=== PATIENT | male | born 1950 | race Caucasian/White ===

== ENCOUNTER 2018-02-07 10:35 | Inpatient (IN) | payer OTHER ==
[2018-01-26 08:27] VITALS: BMI 31.0
--- NOTE | 2018-01-26 08:59 | PAT Medication Instructions ---
Service Date Jan 26, 2018. Current Home Medication List Aspirin (Aspirin Ec), 81 MG PO QPM Esomeprazole Magnesium (Nexium), 20 MG PO HS Fexofenadine-Pseudoephedrine (Emily-D 24 Hour Allergy), 1 TAB PO QPM Tamsulosin Hcl (Flomax), 0.8 MG PO HS [Amlodipine Valsartan], 1 TAB PO QPM Medication Instructions For Your Scheduled Surgery - Hold the following medications the night before surgery: [Amlodipine Valsartan], 1 TAB PO QPM - Take the following medications as scheduled the night before surgery: Aspirin (Aspirin Ec), 81 MG PO QPM Esomeprazole Magnesium (Nexium), 20 MG PO HS Fexofenadine-Pseudoephedrine (Emily-D 24 Hour Allergy), 1 TAB PO QPM Tamsulosin Hcl (Flomax), 0.8 MG PO HS NOTHING TO EAT OR DRINK AFTER MIDNIGHT If you have any questions please call us at [phone] or [phone] or [phone]
--- NOTE | 2018-01-26 10:04 | DIAGNOSTIC IMAGING REPORT ---
CHEST 2 VIEWS ROUTINE CLINICAL HISTORY: 67 years-old Male presenting with preoperative assessment. TECHNIQUE: PA and lateral views of the chest were obtained. COMPARISON: None. FINDINGS: Atherosclerosis of the aortic arch. Cardiac silhouette normal in size. Lungs and pleural spaces clear. Degenerative changes of the thoracic spine. Upper abdomen normal. IMPRESSION: 1. No acute cardiopulmonary disease. Electronically signed by: Delta Vargas M.D. 01/26/2018 10:03 AM Dictated Date/Time: 01/26/2018 10:02 AM
[2018-01-26 10:17] LABS: BASO % 0.8 %; BASO ABS # 0.06 K/uL (0-0.2); EOS % 4.4 %; EOS ABS # 0.33 K/uL (0-0.5); HEMATOCRIT 46.7 % (42-52); HEMOGLOBIN 16.4 g/dL (14.0-18.0); IG# 0.02 K/uL (0.00-0.02); LYMPH ABS # 1.51 K/uL (1.2-3.4); MEAN CORPUSCULAR HEMOGLOBIN 30.2 pg (25-34); MEAN CORPUSCULAR HGB CONC 35.1 g/dl (32-36); MEAN PLATELET VOLUME 10.3 fL (7.4-10.4); MONO % 12.7 %; MONO ABS # 0.96 K/uL (0.11-0.59); NEUT % 61.8 %; NEUT ABS # 4.66 K/uL (1.4-6.5); PLATELET COUNT 251 K/uL (130-400); RED CELL DISTRIBUTION WIDTH CV 14.2 % (11.5-14.5); RED CELL DISTRIBUTION WIDTH SD 43.8 fL (36.4-46.3); WHITE BLOOD COUNT 7.54 K/uL (4.8-10.8)
[2018-01-26 10:24] LABS: PTT PATIENT 26.9 SECONDS (21.0-31.0)
--- NOTE | 2018-02-02 08:34 | HISTORY & PHYSICAL EXAMINATION ---
DATE OF ADMISSION: 02/07/2018 CHIEF COMPLAINT: Right knee pain. HISTORY OF PRESENT ILLNESS: This is a 67-year-old gentleman from the other side of [place], who presents for treatment of his right knee. He has got a long history of right knee pain and discomfort that has gotten gradually worse over the past 5-6 years. He does have a history of an open meniscectomy done in 1975 in [place]. Since then, he has been followed by an orthopedist in [place]. He has had intermittent injections and viscosupplementation that has become less successful over time. Pain is mostly on the medial side of his knee. It is at any time he weight bears. The more he walks, the more it hurts. It is really limiting his activities and he would like to have his right knee fixed. PAST MEDICAL HISTORY: Significant for: 1. 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 2. Elevated cholesterol. 3. Hypertension. 4. Gastroesophageal reflux disease. 5. BPH. 6. Back pain/sciatica. PREVIOUS SURGERIES: Include: 1. Right open knee surgery in 1975. 2. Right shoulder surgery complicated by infection. 3. Neck surgery. 4. Low back surgery. ALLERGIES: None. CURRENT MEDICINES: 1. Omeprazole 20 mg a day. 2. Tamsulosin 4 mg a day. 3. Amlodipine/valsartan 5/320 once a day. 4. Emily. 5. Baby aspirin 81 mg a day. SOCIAL HISTORY: A 67-year-old male patient from [place]. He is . He is retired. Still does some part-time farming. He worked for [employer] for 34 years. Does not smoke. FAMILY HISTORY: Negative for heart disease, diabetes or cancer. REVIEW OF SYSTEMS: Negative for diabetes, neurologic problems, vascular problems or bleeding disorders. He does have a history of shoulder infection after surgery back in 2003. Does not know the organism. PHYSICAL EXAMINATION: GENERAL: Shows a pleasant middle-aged male. Looks to be in pretty good health. HEENT: Benign. NECK: Supple. No lymphadenopathy. LUNGS: Clear to auscultation. HEART: Regular rate and rhythm. ABDOMEN: Soft, nontender, nondistended. EXTREMITIES: Grossly neurovascularly intact except as follows: Examination of the right knee reveals the patient walks with a slight bit of a limp. He has got well-healed scar over the medial side of his knee. Small knee effusion. He does have a varus thrust with weightbearing. He has got bony hypertrophy medially. Range of motion is 5-125. No instability. No pain with hip motion. X-RAYS: X-ray of the right knee reviewed. Shows advanced right knee DJD. He has got complete loss of his medial joint space. He has got osteophytes of the medial femoral condyle and medial tibial plateau. 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 He has failed conservative treatment and would like to have his right knee replaced. He does have this history of shoulder infection in the past but we did do some labs and there are no signs of residual infection. Sed rate and C-reactive protein are normal. PLAN: We are going to take him to the operating and do right total knee replacement. The risks and benefits of this procedure were explained to the patient including but not limited to DVT, PE, , infection, neurological injury, vascular injury, bleeding problem, pain, limited range of motion, stiffness, fairly to relieve symptoms, incomplete relief of symptoms, need for further surgery in future, fracture, leg length, nerve palsy, etc. He is quite concerned about infection and I reassured him that we are as well. Unfortunately, I cannot guarantee him there will not be any infection. We will do the best we can. We will likely put some antibiotics in his cement due to his history of infection in the past as well as his previous surgery. As far as discharge plans, he is planning to be discharged to home and using [facility] home health program.
[2018-02-07] VITALS (7 sets, daily range): BP systolic 116–145; BP diastolic 71–93; PULSE 72–85; TEMP 36.4–36.8; O2SAT 93–97; Ht 175.3 cm; Wt 95.2 kg
[~2018-02-07] VITALS: Ht 175.3 cm; Wt 95.2 kg
[~2018-02-07 10:35] MED LIST: ACETAMINOPHEN 500 MG TAB PO SCH; AMLODIPINE VALSARTAN PO; ASPI81TA28 PO; BUPIVACAINE 0.25% 30 ML VIAL ONE; BUPIVACAINE 0.5 % 5 MG/1 ML PF 10ML VIAL ONE; BUPIVACAINE LIPOSOME 266 MG, BUPIVACAINE/EPINEPHRINE INJ 50 ML, SODIUM CHLORIDE 0.9% PF... INFIL SCH; CEFAZOLIN 2000MG IV PUSH 15 ML IV SCH; DEXAMETHASONE SOD INJ 4 MG/ML VIAL ONE; ESOM20CA PO; EpINEphrine INJ 1MG/ML AMP 1 MG/ML AMP ONE; FAMOTIDINE 20 MG TAB PO SCH; FEXO1TAB58 PO; GABAPENTIN 300 MG CAP PO SCH; LACTATED RINGER'S 1000ML 1,000 ML IV SCH; LACTATED RINGER'S 1000ML 500 ML IV SCH; LACTATED RINGER'S 1000ML IV SCH; METOCLOPRAMIDE HCL 10 MG TAB PO SCH; SCOPOLAMINE 1.5 MG TDSY TD SCH; TAMS0.4C38 PO; TRANEXAMIC ACID INJ 1,000 MG x 1 Bag Intra-Op IV SCH
[2018-02-07] MEDS ORDERED: CYCL0.052 OP (11:11)
--- NOTE | 2018-02-07 11:22 | History & Physical Bridge Note ---
H&P Re-Evaluation Bridge Note: I have examined the patient, reviewed the History & Physical and in the interval since the performance of the History & Physical I have noted the following changes of clinical significance: No changes noted
[2018-02-07] MEDS ORDERED: DEXAMETHASONE SOD INJ 4 MG/ML VIAL ONE (11:29)
[2018-02-07] MEDS ORDERED: LIDOCAINE HCL 2% 2 ML VIAL (20MG/ML) ONE (11:29)
[2018-02-07] MEDS ORDERED: PROPOFOL IV EMULSION 10 MG/ML 20 ML VIAL IV ONE ×2 (11:29→14:43)
[2018-02-07] MEDS ORDERED: ONDANSETRON INJ 2 MG/ML 2 ML VIAL ONE (11:29)
[2018-02-07] MEDS ORDERED: MIDAZOLAM HCL 1 MG/ML 2ML VIAL ONE (11:29)
[2018-02-07] MEDS ORDERED: FENTANYL CITRATE INJ 50 MCG/1 ML 2 ML VIAL ONE (11:30)
[2018-02-07] MEDS ORDERED: SODIUM CHLORIDE 0.9% PF 50 ML VIAL ONE (12:00)
[2018-02-07] MEDS ORDERED: BUPIVACAINE LIPOSOME 1/3% 266 MG/20 ML VIAL INFIL ONE (12:00)
[2018-02-07] MEDS ORDERED: BACITRACIN 50000 UNIT VIAL ONE (12:00)
[2018-02-07] MEDS ORDERED: BUPIVACAINE 0.25% 30 ML VIAL ONE ×2 (12:01→12:07)
[2018-02-07] MEDS ORDERED: EpINEphrine HCL INJ 1 MG/ML 1ML SYRINGE ONE (12:02)
[2018-02-07] MEDS ORDERED: EpINEphrine INJ 1MG/ML AMP 1 MG/ML AMP ONE (12:07)
[2018-02-07] MEDS ORDERED: VANCOMYCIN HCL 1000MG/20ML VIAL ONE (12:41)
[2018-02-07] MEDS ORDERED: EpHEDrine SULFATE INJ 50 MG/ML AMP IV PRN (13:30)
[2018-02-07] MEDS ORDERED: FENTANYL CITRATE INJ 50 MCG/1 ML 2 ML VIAL IV PRN (13:30)
[2018-02-07] MEDS ORDERED: ATROPINE SULFATE 0.1 MG/ML 5ML SYR IV PRN (13:30)
[2018-02-07] MEDS ORDERED: ONDANSETRON INJ 2 MG/ML 2 ML VIAL IV PRN ×2 (13:30→14:45)
--- NOTE | 2018-02-07 14:40 | [facility] Post Operative Brief Note ---
Immediate Operative Summary Operative Date Feb 07, 2018. Pre-Operative Diagnosis Advanced right knee degenerative joint disease Post-Operative Diagnosis Advanced right knee degenerative joint disease Procedure(s) Performed Right total knee arthroplasty Surgeon Dr. Shar Queen MD Reservoir Caretaker Surgeon(s) Peter Garcia PA-C Estimated Blood Loss 50ml Findings Consistent with Post-Op Diagnosis Fluids (cc crystalloids) 2300 cc Specimens A. Bone and Tissue right knee Drains None Anesthesia Type MAC Spinal Regional Complication(s) none Disposition Accompanied Pt To Recover: no Disposition: Recovery Room / PACU
[2018-02-07] MEDS ORDERED: METOCLOPRAMIDE HCL INJ 5 MG/ML 2 ML VIAL IV PRN (14:45)
[2018-02-07] MEDS ORDERED: ZOLPIDEM TARTRATE 5 MG TAB PO PRN (14:45)
[2018-02-07] MEDS ORDERED: BISACODYL 10 MG SUPP PR PRN (14:45)
[2018-02-07] MEDS ORDERED: MAGNESIUM HYDROXIDE SUSP 30 ML UDC PO PRN (14:45)
[2018-02-07] MEDS ORDERED: DiphenhydrAMINE HCL 50 MG/ML VIAL IV PRN (14:45)
[2018-02-07] MEDS ORDERED: ALUMINUM/MAGNESIUM/SIMETH (MAALOX MAX) 30 ML UDC PO PRN (14:45)
[2018-02-07] MEDS ORDERED: SILVER SULFADIAZINE 1% CR 50 GM JAR EXT PRN (14:45)
[2018-02-07] MEDS ORDERED: TAMSULOSIN HCL 0.4 MG CAP PO PRN (14:45)
--- NOTE | 2018-02-07 15:07 | DIAGNOSTIC IMAGING REPORT ---
R KNEE 1 OR 2 VIEWS ROUTINE CLINICAL HISTORY: 67 years-old Male presenting with AP/LATERAL IN PACU RIGHT KNEE. TECHNIQUE: Frontal and crosstable lateral views of the right knee were obtained. COMPARISON: 01/17/2020. FINDINGS: Postsurgical changes of total right knee arthroplasty with patellar resurfacing. Alignment may be within the expected postsurgical range of normal. No periprosthetic fracture. No hardware complication. Expected intra-articular and soft tissue emphysema. Overlying skin chelita noted. IMPRESSION: Postsurgical changes of total right knee arthroplasty with patellar resurfacing. Alignment may be within the expected postsurgical range of normal. Electronically signed by: Delta Vargas M.D. 02/07/2018 3:05 PM Dictated Date/Time: 02/07/2018 3:03 PM
--- NOTE | 2018-02-07 15:28 | Anesthesiology Progress Note ---
Anesthesia Post Op Note Date & Time Feb 07, 2018 at 15:28 Vital Signs Pain Intensity: 0 Vital Signs Past 12 Hours Date Time Temp Pulse Resp B/P (MAP) Pulse Ox O2 Delivery O2 Flow Rate FiO2 02/07/18 15:05 36.9 78 18 128/69 94 Nasal Cannula 2 02/07/18 14:55 81 19 106/63 94 Nasal Cannula 2 02/07/18 14:46 36.3 83 14 112/59 98 Oxymask 10 02/07/18 11:00 36.4 72 20 137/93 94 Room Air Notes Mental Status: alert / awake / arousable, participated in evaluation Pt Amnestic to Procedure: Yes Nausea / Vomiting: adequately controlled Pain: adequately controlled Airway Patency, RR, SpO2: stable & adequate BP & HR: stable & adequate Hydration State: stable & adequate Neuraxial Anesthesia: was administered, sensory block is resolving Anesthetic Complications: no major complications apparent
--- NOTE | 2018-02-07 15:30 | OPERATIVE REPORT ---
DATE OF OPERATION: 02/07/2018 SURGEON: Shar Queen MD ARTIFICIAL STONE SETTER: ERWIN River PREOPERATIVE DIAGNOSIS: Right knee degenerative joint disease. POSTOPERATIVE DIAGNOSIS: Same. PROCEDURE PERFORMED: Right cemented posterior stabilized total knee arthroplasty. COMPLICATIONS: None. ESTIMATED BLOOD LOSS: 50 mL. FLUID REPLACEMENT: 2300 mL crystalloid fluid replacement. TOURNIQUET TIME: 53 minutes at 300 mmHg. ANESTHESIA: Spinal with adductor canal block. DRAINS: None. SPECIMENS: Right knee sent for pathology. OPERATIVE INDICATIONS: The patient is a 67-year-old gentleman who has had a long history of right knee problems. He underwent an open meniscectomy in the 70s. Over the past several years, he developed progressive increased pain and discomfort in his right knee. He failed all conservative care. He elected to proceed with operative treatment. OPERATIVE FINDINGS: Operative findings revealed advanced right knee medial compartment DJD with extensive grade 4 change of the medial femoral condyle and medial tibial plateau with eburnation at both sides of the joint. He had a fixed varus deformity to his knee. A moderate effusion. The remainder of his knee was fairly well preserved with some age-related changes. OPERATIVE IMPLANTS: Operative implants consisted of: 1. Biomet Vanguard size 67.5 right posterior stabilized femoral component. 2. Biomet size 75 tibial tray. 3. A 12-mm posterior stabilized polyethylene insert. 4. A 31 x 8 all poly patella. OPERATIVE PROCEDURE: The patient was taken to the operating room, identified and placed on the operating table in the supine position. All contact areas were appropriately padded. IV antibiotics were provided by anesthesia team. Spinal anesthetic and adductor canal block had been provided in the holding area. Pagan catheter was placed in sterile fashion. Right thigh tourniquet was then placed and the right lower extremity was then prepped and draped in the usual sterile fashion. The right leg was elevated, exsanguinated with Esmarch and tourniquet was placed at 300 mmHg. An anterior approach to the right knee was then performed through a longitudinal incision centered over the patella. Sharp dissection was carried through the subcutaneous tissues down to the level of the extensor mechanism. Medial parapatellar arthrotomy incision was made. Some subperiosteal dissection was carried out medially. The fat pad resected from beneath the patellar tendon. The lateral patellofemoral ligament was released. Patella was everted and knee was flexed. The osteophytes were taken off the distal femur. The ACL and PCL were then released from the distal femur. The tibia subluxated anteriorly. The external tibial alignment jig was then placed in the anterior face of the tibia and adjusted 16 mm medially. Proximal tibial cut was made to remove about 2 mm of bone from the most deficient aspect of the medial tibial plateau. Tibia was then sized to a size 75. Attention was then drawn to the femur. The distal femur was entered with a sharp drill. Intramedullary canal was suctioned. A right 6-degree valgus cutting guide was placed. Distal femoral cutting block was pinned in place. Distal femoral cut was made to take an additional 3 mm of bone off the distal femur. The femur was then sized to a size 67.5. The AP cutting block was pinned parallel to the epicondylar axis, which was 3 degrees of external rotation. The anterior cut, anterior chamfer, posterior cut, and posterior chamfer cuts were made. Box cutting guide was placed. The box cut was made. The remnants of the medial and lateral menisci were excised. The osteophytes were taken off the posterior aspect of the femur. Trial femoral component was placed. Tibial tray was pinned in maximum external rotation and drill and stem punch were used to create defect in proximal tibia for the tibial tray. The knee was then trialed and the 12-mm insert fit most appropriately. Attention was then drawn to the patella. The patella was cleaned of all soft tissues. Patella thickness measured about 20 mm in thickness and it was cut down to 13. It was sized to a size 31 patella. Lug holes were drilled for a 31 patella. Lateral osteophyte was removed. Patella button was placed. Knee was taken through range of motion and patella tracked nicely with no thumbs test. Attention was then drawn toward placement of permanent components. All trial components were removed. Bone plug was placed in the distal femur to limit blood loss. A double batch of Palacos G cement was mixed. I did add an additional gram of vancomycin due to his history of previous surgery on this knee and a history of a shoulder infection in the past. A right size 67.5 posterior stabilized femoral component, a size 75 tibial tray, a 12-mm posterior stabilized polyethylene insert, and a 31 x 8 all poly patella were then cemented in place. Knee was brought into full extension until cement hardened. A final cement check was then performed. Pericapsular tissues were injected with a total of 100 mL of combination of 20 mL of Exparel, 30 mL of normal saline, and 50 mL of 0.25% Marcaine with epinephrine. The patient did receive 1 gram of tranexamic acid. The tourniquet was then let down for final tourniquet time of 53 minutes. Hemostasis was assured using electrocautery. The extensor mechanism was then closed with a combination of #1 PDS suture and #1 Vicryl suture in a [id number] fashion. Extensor mechanism was checked and found to be intact. The subcutaneous tissues were then closed with 2-0 Dexon suture in a buried interrupted fashion. Skin was closed skin chelita. Leg was then cleaned and dried and a sterile dressing of Xeroform, 4 x 4's, sterile cast padding and Heriberto bandage were applied. The patient then transferred to the recovery room in stable condition. The patient tolerated the procedure well with no complication. All needle and sponge counts were correct at the end of the operation. I attest to the content of the Intraoperative Record and any orders documented therein. Any exception s are noted below.
[2018-02-07] MEDS: RESTASIS - ORDER AWAITING ACTION SCH ×2 (16:41→22:47)
[2018-02-07] MEDS: D5W AND 1/2NSS + 20MEQ KCL 1,000 ML IV SCH (16:42)
[2018-02-07] MEDS: KETOROLAC TROMETHAMINE 15 MG/ML VIAL IV. SCH ×2 (16:42→21:30)
[2018-02-07] MEDS: CHECK SCOPOLAMINE PATCH PLACEMENT SCH ×2 (16:42→23:42)
[2018-02-07] MEDS ORDERED: COUGH DROP (SUGAR FREE) LOZ 24 LOZ/1 BOX LOZ ONE (17:36)
[2018-02-07] MEDS ORDERED: NURSING DECISION MEDICATION ORDER SCH (17:45)
[2018-02-07] MEDS: FERROUS GLUCONATE 324 MG TAB PO SCH (17:48)
[2018-02-07] MEDS ORDERED: COUGH DROP (SUGAR FREE) LOZ 24 LOZ/1 BOX LOZ PRN (18:00)
[2018-02-07] MEDS: ACETAMINOPHEN 500 MG TAB PO SCH (19:00)
[2018-02-07] MEDS: OXYCODONE HCL IR 5 MG TAB (IMMEDIATE RELEASE) PO PRN (19:28)
[2018-02-07] MEDS ORDERED: ACET-24 PO (19:58)
[2018-02-07] MEDS ORDERED: ASPEC81 PO (19:58)
[2018-02-07] MEDS ORDERED: RXC5 PO (19:58)
--- NOTE | 2018-02-07 20:02 | Discharge Instructions ---
Discharge Instructions Date of Service Feb 07, 2018. Admission Reason for Admission: Right Knee Degenerative Joint Disease, Knee Pain Discharge Discharge Diagnosis / Problem: Right Knee Replacement Discharge Goals Goal(s): Decrease discomfort, Improve function, Increase independence, Improve disease control, Therapeutic intervention Activity Recommendations Activity Limitations: per Instructions/Follow-up section Weightbearing Status: Right weightbearing . Instructions / Follow-Up Instructions / Follow-Up ACTIVITY RECOMMENDATIONS: Physical Therapy: * You will go to physical therapy three times each week for four to six weeks after your surgery in order to regain your knee range of motion and to retrain your knee to work properly. * It is just as important to make sure you are getting your knee perfectly straight as it is to regain your knee bend. * Taking a pain pill an hour before therapy can help you have a more productive and comfortable therapy session. Home Exercise: * You were shown a series of exercises (heel props, heel slides, etc.) in the hospital. Do these exercises three to four times each day including the exercises you were shown in physical therapy. Walking: * Get up and walk several times each day. For the first four weeks, try not to stand or walk for more than one hour at a time. If you do stand or walk for more than one hour, you will not hurt anything, but your knee and leg will likely swell. * As you feel comfortable, you may change from the walker or crutches to a cane and then to independent walking. MEDICATIONS: New Medicine: * You will likely be taking one or more of these medications: 1. Oxycodone - A quick and shorter-acting pain medication. Take one to two tablets every four to six hours to lessen your pain. 2. Aspirin - Thins your blood to lessen the chance of forming a blood clot. * The most common side effects of pain medicine and iron are nausea and constipation. If nausea or constipation is too much of a problem or if you have any questions about your new medicines or doses, call [facility] at . We will try to help you manage these issues. VERY IMPORTANT TO READ AND REVIEW" Pain: * The immediate post-operative period after knee replacement surgery is often quite painful. * You are given a prescription for pain medicine. You should take it, as directed, when you need it, especially before physical therapy and before going to bed. Pain that interferes with sleep is very common and can last several months. * You will likely need pain medicine for the first four to six weeks. It will not stop all of the pain. The pain will lessen and as you feel better, you may change to milder pain medicine such as Tylenol. * The most common side effects of pain medicine are nausea and constipation, so don't take more than you need. SPECIAL CARE INSTRUCTIONS: TEDs/Elastic Stockings: * The white elastic stockings help limit swelling and prevent blood clots from forming in your legs. The more you wear them, the more they work. * Wear them for six weeks after knee replacement surgery and four weeks after partial knee replacement. Prevention of Infection: * Take antibiotics one hour before any dental cleaning, dental work, urological procedure, gastrointestinal procedure or any invasive surgery in order to prevent your new joint from getting infected. * You may get the antibiotics from the doctor performing the procedure or you may call our office at before and we will call in a prescription to the pharmacy of your choice. Things to Watch For: * Drainage from the incision site that occurs more than one week after your surgery. * Severely increased knee/leg pain or swelling. * Increased redness at the incision site. * Fever above 102 degrees Fahrenheit. * Unusual chest pain or shortness of breath. * Unusual pain or burning with urination. Call [facility] at with any of the above problems or if you have any questions about your medicines or recovery. FOLLOW UP VISIT: Make an appointment to see your doctor for approximately two weeks after surgery for a progress check and staple removal by calling the office at . Current Hospital Diet Patient's current hospital diet: Regular Diet Discharge Diet Recommended Diet: Regular Diet Procedures Procedures Performed: Right total knee arthroplasty Pending Studies Studies pending at discharge: no Medical Emergencies . Who to Call and When: Medical Emergencies: If at any time you feel your situation is an emergency, please call [phone] immediately. . Non-Emergent Contact Non-Emergency issues call your: Surgeon . "Provider Documentation" section prepared by Shar Queen. .
--- NOTE | 2018-02-07 20:28 | PROGRESS NOTE ---
DATE: 02/07/2018 SUBJECTIVE: A 67-year-old gentleman postop from a right knee replacement. He is doing well. Minimal pain. No chest pain or shortness of breath. Not feeling dizzy or lightheaded. OBJECTIVE: VITAL SIGNS: Temperature 36.3. Vital signs stable. GENERAL: Reveals a healthy, pleasant, middle-aged male. He is sitting up in bed, looks pretty comfortable. LUNGS: Clear to auscultation. HEART: Regular rate and rhythm. ABDOMEN: Soft, nontender, nondistended. EXTREMITIES: Grossly neurovascularly intact except as follows: Examination of the right leg reveals the leg to be well aligned. Dressing is clean, dry, and intact. He can dorsiflex and plantarflex his foot appropriately. He has brisk refill. He is neurologically intact. X-RAYS: X-ray of the right knee from recovery room reviewed. It shows right cemented posterior stabilized total knee arthroplasty. Component looks to be in good position. No signs of problems. ASSESSMENT: A 67-year-old gentleman postop from a right knee replacement. He is doing pretty well. His pain is controlled. He is neurologically intact. PLAN: 1. DVT prophylaxis including thigh-high TEDs, SCDs, and aspirin twice a day. 2. PT/OT. Weight bear as tolerated. Right total knee protocol. 3. Pain control, doing well with current pain regimen. 4. IV antibiotics x24 hours. 5. Disposition: Plan to discharge to home with some home health once adequately recovered.
[2018-02-07] MEDS ORDERED: TRANEXAMIC ACID INJ 1,000 MG in SODIUM CHLORIDE 0.9% 100ML 100 ML IV SCH (20:30)
[2018-02-07] MEDS: TAPENTADOL ER 50 MG TABCR PO SCH (20:34)
[2018-02-07] MEDS: CEFAZOLIN IV 2,000 MG in SYRINGE 0 ML IV SCH (20:34)
[2018-02-07] MEDS: AMLODIPINE BESYLATE 5 MG TAB PO SCH (20:35)
[2018-02-07] MEDS: ASPIRIN 81 MG ECTAB PO SCH (20:35)
[2018-02-07] MEDS: DOCUSATE SODIUM 100 MG CAP PO SCH (20:35)
[2018-02-07] MEDS: TAMSULOSIN HCL 0.4 MG CAP PO SCH (20:36)
[2018-02-07] MEDS: SENNA 8.6 MG TAB PO SCH (20:36)
[2018-02-07] MEDS: VALSARTAN 80 MG TAB PO SCH (20:36)
[2018-02-07] MEDS ORDERED: NON-FORMULARY MEDICATION (Esomeprazole Magnesium (Nexium) 20 MG) PO SCH (21:00)
[2018-02-08] VITALS (7 sets, daily range): BP systolic 109–132; BP diastolic 65–79; PULSE 49–66; TEMP 36.5–36.9; O2SAT 94–96
[2018-02-08] MEDS: D5W AND 1/2NSS + 20MEQ KCL 1,000 ML IV SCH ×2 (02:42→12:39)
[2018-02-08] MEDS: ACETAMINOPHEN 500 MG TAB PO SCH ×3 (04:09→18:32)
[2018-02-08] MEDS: CEFAZOLIN IV 2,000 MG in SYRINGE 0 ML IV SCH (04:09)
[2018-02-08] MEDS: KETOROLAC TROMETHAMINE 15 MG/ML VIAL IV. SCH ×4 (04:09→21:35)
[2018-02-08 06:25] LABS: HEMATOCRIT 41.8 % (42-52); HEMOGLOBIN 14.4 g/dL (14.0-18.0); MEAN CELL VOLUME 86.2 fL (80-100); MEAN CORPUSCULAR HEMOGLOBIN 29.7 pg (25-34); MEAN CORPUSCULAR HGB CONC 34.4 g/dl (32-36); MEAN PLATELET VOLUME 10.4 fL (7.4-10.4); PLATELET COUNT 266 K/uL (130-400); RED CELL DISTRIBUTION WIDTH CV 13.8 % (11.5-14.5); RED CELL DISTRIBUTION WIDTH SD 43.4 fL (36.4-46.3); WHITE BLOOD COUNT 20.23 K/uL (4.8-10.8)
[2018-02-08 06:56] LABS: CALCIUM 7.7 mg/dl (8.5-10.1); CREATININE 1.14 mg/dl (0.60-1.40); POTASSIUM 3.9 mmol/L (3.5-5.1)
[2018-02-08] MEDS: RESTASIS - ORDER AWAITING ACTION SCH ×3 (07:46→23:32)
[2018-02-08] MEDS: CHECK SCOPOLAMINE PATCH PLACEMENT SCH ×3 (07:46→23:32)
--- NOTE | 2018-02-08 08:27 | PROGRESS NOTE ---
DATE: 02/08/2018 SUBJECTIVE: A 67-year-old gentleman postop day 1 from right knee replacement. He is doing pretty well. Bit more sore this morning. No chest pain or shortness of breath. Not feeling dizzy or lightheaded. OBJECTIVE: VITAL SIGNS: Temperature 36.7. Vital signs stable. PHYSICAL EXAMINATION: GENERAL: Reveals a healthy, pleasant middle-aged male. He is lying in his bed, looks pretty comfortable, doing a heel prop. EXTREMITIES: Examination of the right leg reveals the dressing to be clean, dry and intact. He can dorsiflex and plantarflex his foot appropriately. He can do a pretty good straight leg raise. LABORATORY DATA: Hemoglobin 14.4. Hematocrit 41.8. White cell count 20.23. Electrolytes are stable. ASSESSMENT: A 67-year-old gentleman postop day 1 from right knee replacement, doing well. Pain is reasonably well controlled. White cell count is elevated, likely related to stress. There are no focal signs of infection. PLAN: 1. DVT prophylaxis including thigh-high TEDs, SCDs, and aspirin twice a day. 2. PT/OT. Weight bear as tolerated. Right total knee protocol. 3. Pain control, doing pretty well with current pain regimen. 4. Disposition: Plan to be discharged to home with some home health once adequately recovered.
[2018-02-08] MEDS: ASPIRIN 81 MG ECTAB PO SCH ×2 (08:52→20:49)
[2018-02-08] MEDS: MULTIVITAMIN TAB PO SCH (08:52)
[2018-02-08] MEDS: PANTOprazole SOD 40 MG TAB PO SCH (08:52)
[2018-02-08] MEDS: FERROUS GLUCONATE 324 MG TAB PO SCH ×3 (08:52→17:49)
[2018-02-08] MEDS: DOCUSATE SODIUM 100 MG CAP PO SCH ×2 (08:52→20:49)
[2018-02-08] MEDS: TAPENTADOL ER 50 MG TABCR PO SCH ×2 (08:55→20:47)
[2018-02-08] MEDS: OXYCODONE HCL IR 5 MG TAB (IMMEDIATE RELEASE) PO PRN ×3 (10:15→20:48)
--- NOTE | 2018-02-08 10:48 | Anesthesiology Progress Note ---
Anesthesia Post Op Note Date & Time Feb 08, 2018 at 10:48 Vital Signs Vital Signs Past 12 Hours Date Time Temp Pulse Resp B/P (MAP) Pulse Ox O2 Delivery O2 Flow Rate FiO2 02/08/18 08:48 94 Room Air 02/08/18 08:00 Room Air 02/08/18 07:40 36.5 60 14 118/74 (89) 94 Room Air 02/08/18 03:05 36.7 62 17 109/65 (80) 95 Room Air 02/07/18 23:40 Room Air 02/07/18 23:11 36.8 74 18 120/73 (89) 93 Room Air Notes Mental Status: alert / awake / arousable, participated in evaluation Pt Amnestic to Procedure: Yes Nausea / Vomiting: adequately controlled Pain: adequately controlled Airway Patency, RR, SpO2: stable & adequate BP & HR: stable & adequate Hydration State: stable & adequate Neuraxial Anesthesia: was administered, sensory block resolved Anesthetic Complications: no major complications apparent
[2018-02-08] MEDS: MoRPHine SULFATE 2 MG/ML CARP IV PRN ×2 (12:42→23:32)
[2018-02-08] MEDS: SENNA 8.6 MG TAB PO SCH (20:48)
[2018-02-08] MEDS: VALSARTAN 80 MG TAB PO SCH (20:48)
[2018-02-08] MEDS: TAMSULOSIN HCL 0.4 MG CAP PO SCH (20:49)
[2018-02-08] MEDS: AMLODIPINE BESYLATE 5 MG TAB PO SCH (20:49)
[2018-02-09] MEDS: KETOROLAC TROMETHAMINE 15 MG/ML VIAL IV. SCH ×2 (04:07→09:37)
[2018-02-09] MEDS: ACETAMINOPHEN 500 MG TAB PO SCH (04:07)
[2018-02-09 06:15] VITALS: BP 123/80; PULSE 55; TEMP 36.6; O2SAT 95
[2018-02-09] MEDS: CHECK SCOPOLAMINE PATCH PLACEMENT SCH (07:16)
[2018-02-09] MEDS: RESTASIS - ORDER AWAITING ACTION SCH (07:16)
[2018-02-09] MEDS: PANTOprazole SOD 40 MG TAB PO SCH (07:17)
[2018-02-09] MEDS: FERROUS GLUCONATE 324 MG TAB PO SCH (07:17)
[2018-02-09] MEDS: DOCUSATE SODIUM 100 MG CAP PO SCH (07:17)
[2018-02-09] MEDS: MULTIVITAMIN TAB PO SCH (07:17)
[2018-02-09] MEDS: ASPIRIN 81 MG ECTAB PO SCH (07:17)
[2018-02-09] MEDS: OXYCODONE HCL IR 5 MG TAB (IMMEDIATE RELEASE) PO PRN (07:21)
[2018-02-09] MEDS: TAPENTADOL ER 50 MG TABCR PO SCH (07:21)
--- NOTE | 2018-02-09 08:09 | PROGRESS NOTE ---
DATE: 02/09/2018 SUBJECTIVE: A 67-year-old gentleman postop day 2 from a right knee replacement. She is doing pretty well. Pain is manageable. No chest pain or shortness of breath. Not feeling dizzy or lightheaded. OBJECTIVE: VITAL SIGNS: Temperature 36.6. Vital signs stable. GENERAL: Reveals a pleasant, middle-aged male. He is sitting up in his bed eating breakfast. Looks pretty comfortable. EXTREMITIES: Examination of the right leg reveals the dressing to be clean, dry and intact. Calf is soft and supple. He can dorsiflex and plantarflex his foot appropriately. He is neurologically intact. ASSESSMENT: A 67-year-old gentleman postop day 2 from right knee replacement, doing reasonably well. PLAN: 1. DVT prophylaxis including thigh-high TEDs, SCDs, and aspirin twice a day. 2. PT/OT. Weight bear as tolerated. Right total knee protocol. 3. Pain control. Doing reasonably well with current pain regimen. 4. Disposition: Plan to discharge to home with some home health later today.
[2018-02-09 09:24] VITALS: BP 123/80; PULSE 55; TEMP 36.6; O2SAT 95
== END 2018-02-09 10:02 | disposition home health service (06) | DRG 470 ==
LOC: C.ACU 10:35 → C.3E 12:00 → ENRESERV 15:21
PROVIDERS: ADMIT Orthopaedic Surgery Sports Medicine; ATTEND Orthopaedic Surgery Sports Medicine
PROC: 0SRC0J9 Replacement of Right Knee Joint with Synthetic Substitute, Cemented, Open Approach (ICD-10-PCS; principal; 2018-02-07 13:00)
DX: M17.11 Unilateral primary osteoarthritis, right knee (principal); I10 Essential (primary) hypertension; K21.9 Gastro-esophageal reflux disease without esophagitis; N40.0 Benign prostatic hyperplasia without lower urinary tract symptoms; Z79.899 Other long term (current) drug therapy; Z79.82 Long term (current) use of aspirin; Z86.19 Personal history of other infectious and parasitic diseases; Z85.828 Personal history of other malignant neoplasm of skin

== ENCOUNTER 2019-11-30 09:09 | Inpatient (IN) ==
--- NOTE | 2019-10-22 13:28 | PAT Medication Instructions ---
Medication Instructions Date of Service October 22, 2019 Home Medications acetaminophen [Tylenol Extra Strength] 1,000 mg PO Q6H PRN amlodipine 5 mg PO HS aspirin [Aspir-81] 81 mg PO QAM candesartan 32 mg PO QAM cyclosporine [Restasis] 1 drp OPHTHALMIC (EYE) Q12H PRN esomeprazole magnesium 20 mg PO QAM fexofenadine-pseudoephedrine [Emily-D 24 Hour] 1 tab PO QAM hydroxychloroquine 200 mg PO QAM piroxicam 20 mg PO QAM tamsulosin 0.8 mg PO HS ASK your surgeon for instructions piroxicam 20 mg PO QAM ASK your prescriber and surgeon hydroxychloroquine 200 mg PO QAM DO NOT take the morning of surgery candesartan 32 mg PO QAM fexofenadine-pseudoephedrine [Emily-D 24 Hour] 1 tab PO QAM Take morning of surgery With a small sip of water, OTHERWISE NOTHING TO EAT OR DRINK AFTER MIDNIGHT: acetaminophen [Tylenol Extra Strength] 1,000 mg PO Q6H PRN (if needed, may be taken up to four hours before surgery) aspirin [Aspir-81] 81 mg PO QAM cyclosporine [Restasis] 1 drp OPHTHALMIC (EYE) Q12H PRN (if needed) esomeprazole magnesium 20 mg PO QAM Take evening before surgery acetaminophen [Tylenol Extra Strength] 1,000 mg PO Q6H PRN (if needed) amlodipine 5 mg PO HS cyclosporine [Restasis] 1 drp OPHTHALMIC (EYE) Q12H PRN (if needed) tamsulosin 0.8 mg PO HS Other Notes If you have any questions please call us at [phone] or [phone] or [phone] or [phone]
--- NOTE | 2019-10-23 09:25 | Anesthesiology Consultation ---
Date of Service October 23, 2019 Assessment & Plan (1) Encounter for pre-operative examination: 2018 TKA @ [facility], SAB x 1 attempt, no complications. Chart Review Chart Review: Acceptable Risk for Surgery and Patient seen in Pre Admission Testing Teaching & Discussion Instructed NPO after midnight before surgery, except medications with 15 cc of water. Medication instructions provided according to the PAT guidelines. History Surgery Operation Date: 11/30/19 08:30 Proposed Procedures p Right Reverse Total Shoulder Arthroplasty - Román Mehta DO Height/Weight Height: 5 ft 9 in Weight: 96.4 kg Allergies Allergy/AdvReac Type Severity Reaction Status Date / Time Fybbaup-Kil-Sxv Reductase Allergy Unknown LEG Verified 10/16/19 11:16 Inhibitor SWELLING Medications Home Medications Medication Instructions Recorded Confirmed Last Taken acetaminophen [Tylenol Extra 1,000 mg PO Q6H PRN 10/16/19 10/23/19 Unknown Strength] amlodipine 5 mg PO HS 10/16/19 10/23/19 Unknown aspirin [Aspir-81] 81 mg PO QAM 10/16/19 10/23/19 Unknown candesartan 32 mg PO QAM 10/16/19 10/23/19 Unknown cyclosporine [Restasis] 1 drp OPHTHALMIC (EYE) Q12H PRN 10/16/19 10/23/19 Unknown esomeprazole magnesium 20 mg PO QAM 10/16/19 10/23/19 Unknown fexofenadine-pseudoephedrine 1 tab PO QAM 10/16/19 10/23/19 Unknown [Emily-D 24 Hour] hydroxychloroquine 200 mg PO QAM 10/16/19 10/23/19 Unknown piroxicam 20 mg PO QAM 10/16/19 10/23/19 Unknown tamsulosin 0.8 mg PO HS 10/16/19 10/23/19 Unknown fexofenadine 180 mg tablet 180 mg PO DAILY 10/23/19 10/23/19 Unknown Past Medical History Medical History Arthritis Patient takes hydroxycholorquine, is unsure what for but believes it is for arthritis (could not confirm RA). BPH (benign prostatic hyperplasia) GERD (gastroesophageal reflux disease) Hyperlipidemia NO MEDS Hypertension Exercise / Class Metabolic Activity II 4-5 Yardwork/Stairs/Walk up hill (Denies CP or SOB with 1 FOS) Past Family History Family History Brother Family history of diabetes mellitus Family hx of colon cancer Uncle Family hx of colon cancer Father Family hx of colon cancer Grandfather (Paternal) Family hx of colon cancer Past Surgical History Surgical History History of cervical spinal surgery SCREWS IN PLACE History of colonoscopy History of repair of rotator cuff RIGHT History of total knee replacement RIGHT Past Anesthesia History No Hx of Anesthesia Complications and No Family Hx of Anesthesia Complications History of PONV No Hx of PONV and No Hx of Motion Sickness Social History Smoking Status: Never smoker Do You Dip or Chew Tobacco: No Hx Alcohol Use: Yes Alcohol type: beer alcohol intake frequency: a few times a week Hx Substance Use: No Review of Systems Pt denies any recent chest pain, shortness of breath, palpitations, cough, fever or URI. +sinus congestion/common cold symptoms Physical Exam Vital Signs BP: 150/87 (pt is anxious, had stressful drive here today) P: 59bpm SPO2: 94% RA T: 97.7 F R: 12 ENMT Mouth: no dental restorations, no chipped teeth and no loose teeth Thyromental Distance: > or= 3.5 Finger Breadths (4) Mallampati Class: III Neck normal visual inspection and + facial hair (short wagner); neck extension not limited (but some mild pain with full extension) Respiratory normal respiratory effort Auscultation: + crackles (very soft inspiratory B/L bases, otherwise CTA) Cardiovascular Rate/Rhythm: regular rate and regular rhythm Heart Sounds: no murmur Vessels: no carotid bruit Testing Laboratory Results 10/23/19 09:35 10/23/19 09:35 PT 11.0 Seconds (9.0-12.0) 10/23/19 09:35 INR 1.1 (0.9-1.1) 10/23/19 09:35 APTT 28.2 Seconds (21.0-31.0) 10/23/19 09:35 Blood Type A Positive 10/23/19 09:35 Antibody Screen NEGATIVE 10/23/19 09:35 Electrocardiogram Date: 10/23/19 Findings: + SB @ (56) and + no change from (01/26/18) Chest X-Ray Date: 10/23/19 Mild cardiac enlargement with no active disease in the chest. There is mild elevation of left hemidiaphragm and bibasilar atelectasis.
--- NOTE | 2019-10-23 10:06 | XRay Report ---
TWO VIEW CHEST CLINICAL HISTORY: Preoperative examination. FINDINGS: PA and lateral chest radiographs are compared to study dated 01/26/2018. The PA view is degr aded by patient rotation. The heart is mildly enlarged noting atherosclerotic calcification of the th oracic aorta. There is mild elevation of left hemidiaphragm and bibasilar atelectasis. No airspace co nsolidation or pleural effusion is seen. There is no pneumothorax. The bony thorax appears intact. Fu catarina hardware is noted in the lower cervical spine. IMPRESSION: Mild cardiac enlargement with no active disease in the chest. Electronically signed by: David Rojas M.D. 10/23/2019 10:05 AM
[2019-10-23 11:34] LABS: Basophils # (auto) 0.08 K/uL (0-0.2); Basophils % (auto) 1.3 %; Eosinophils % (auto) 6.3 %; Hematocrit (blood only) 47.9 % (42-52); Hemoglobin 15.9 g/dL (14.0-18.0); Immature Granulocytes # (auto) 0.01 K/uL (0.00-0.02); Immature Granulocytes % (auto) 0.2 %; Lymphocytes # (auto) 1.51 K/uL (1.2-3.4); Lymphocytes % (auto) 23.9 %; Mean Corpuscular Hemoglobin 29.3 pg (25-34); Mean Corpuscular Hgb Conc 33.2 g/dL (32-36); Mean Corpuscular Volume 88.4 fL (80-100); Mean Platelet Volume 10.7 fL (7.4-10.4); Monocytes # (auto) 0.78 K/uL (0.11-0.59); Monocytes % (auto) 12.3 %; Neutrophils # (auto) 3.55 K/uL (1.4-6.5); Platelet Count 303 K/uL (130-400); RDW Coefficient of Variation 14.3 % (11.5-14.5); RDW Standard Deviation 46.1 fL (36.4-46.3); Red Blood Count 5.42 M/uL (4.7-6.1); White Blood Count 6.33 K/uL (4.8-10.8)
[2019-10-23 11:44] LABS: BUN Creatinine Ratio 14.7 (10-20); Calcium 8.8 mg/dl (8.5-10.1); Est GFR (Non-African American) 71.6; Potassium 4.1 mmol/L (3.5-5.1)
[2019-10-23 11:47] LABS: INR 1.1 (0.9-1.1); Partial Thromboplastin Time 28.2 Seconds (21.0-31.0)
--- NOTE | 2019-11-29 07:04 | History & Physical Report ---
Date of Service November 29, 2019 Assessment & Plan (1) Rotator cuff arthropathy of right shoulder: We will proceed with a right reverse shoulder arthroplasty. Postoperatively he will be placed in a sling and kept overnight in the hospital for postoperative medical management. He plans to decide on home health after he meets with case management in the hospital. Present on Admission?: Yes History of Present Illness Chief Complaint: Rotator cuff arthropathy of the right shoulder Primary Care Provider: NO PCP Ric is a pleasant 69-year-old male who initially injured his right shoulder in 2004. He had it repaired at an outside institution, but unfortunately he had an infection of his shoulder. He had a cleanout and a revision cuff repair in [facility] soon thereafter. Unfortunately his shoulder is never done well. He is gone on developed significant arthritis and weakness of his shoulder. It hurts him all the time. X-rays and clinical examination were diagnostic for cuff arthropathy of the right shoulder. After failing conservative treatment, he has elected to proceed with a right reverse shoulder arthroplasty. Allergies Allergy/AdvReac Type Severity Reaction Status Date / Time [id number]-Gtw-[id number] Reductase Allergy Unknown LEG Verified 10/16/19 11:16 Inhibitor SWELLING Home Medications Home Medications Medication Instructions Recorded Confirmed Type acetaminophen [Tylenol Extra 1,000 mg PO Q6H PRN 10/16/19 10/23/19 History Strength] amlodipine 5 mg PO HS 10/16/19 10/23/19 History aspirin [Aspir-81] 81 mg PO QAM 10/16/19 10/23/19 History candesartan 32 mg PO QAM 10/16/19 10/23/19 History cyclosporine [Restasis] 1 drp OPHTHALMIC (EYE) Q12H PRN 10/16/19 10/23/19 History esomeprazole magnesium 20 mg PO QAM 10/16/19 10/23/19 History fexofenadine-pseudoephedrine 1 tab PO QAM 10/16/19 10/23/19 History [Emily-D 24 Hour] hydroxychloroquine 200 mg PO QAM 10/16/19 10/23/19 History piroxicam 20 mg PO QAM 10/16/19 10/23/19 History tamsulosin 0.8 mg PO HS 10/16/19 10/23/19 History fexofenadine 180 mg tablet 180 mg PO DAILY 10/23/19 10/23/19 History Past Med/Surg History Medical History Arthritis Patient takes hydroxycholorquine, is unsure what for but believes it is for arthritis (could not confirm RA). BPH (benign prostatic hyperplasia) GERD (gastroesophageal reflux disease) Hyperlipidemia NO MEDS Hypertension Surgical History History of cervical spinal surgery SCREWS IN PLACE History of colonoscopy History of repair of rotator cuff RIGHT History of total knee replacement RIGHT Family History Brother Family history of diabetes mellitus Family hx of colon cancer Uncle Family hx of colon cancer Father Family hx of colon cancer Grandfather (Paternal) Family hx of colon cancer Social History Preferred Language: Angolan Communication Ability: Effective Babbitt Spinner Required: No Beliefs That Will Affect Care: None Current Living Situation: Spouse Other Information That Helps Us Care for You: No Feels Safe at Home: Yes Safety Concerns: Feels Safe At This Time Smoking Status: Never smoker Do You Dip or Chew Tobacco: No ; Second Hand Exposure: No ; Hx Alcohol Use: Yes Alcohol type: beer Hx Substance Use: No Review of Systems All systems reviewed & are unremarkable except as noted in HPI & below Physical Exam Constitutional: WD/WN, vitals as above Eyes: PERRL, conjunctivae normal, anicteric sclerae ENMT: external ear and nose normal, oropharynx normal Neck: trachea midline, no thyromegaly Respiratory: normal respiratory effort Cardiovascular: RRR, no murmur, no edema Gastrointestinal (Abdomen): normal bowel sounds, soft, nontender, no hepatosplenomegaly Musculoskeletal: Physical examination of the right shoulder reveals decreased range of motion and significant weakness. There is tenderness palpation along the anterior glenohumeral joint line. The right upper extremity is neurovascularly intact. Psychiatric: A+Ox3, euthymic affect Results & Data Diagnostic Findings Radiographs of the right shoulder show some signs of osteoarthritis with blunting of the greater tuberosity and some superior migration of the humeral head on the glenoid.
[~2019-11-30 09:09] MED LIST changes: -AMLODIPINE VALSARTAN PO; -ASPI81TA28 PO; -BUPIVACAINE 0.25% 30 ML VIAL ONE; -BUPIVACAINE LIPOSOME 266 MG, BUPIVACAINE/EPINEPHRINE INJ 50 ML, SODIUM CHLORIDE 0.9% PF... INFIL SCH; +CEFAZOLIN 2000MG 2,000 MG/15 ML SYR IV SCH; -CEFAZOLIN 2000MG IV PUSH 15 ML IV SCH; -DEXAMETHASONE SOD INJ 4 MG/ML VIAL ONE; -ESOM20CA PO; -EpINEphrine INJ 1MG/ML AMP 1 MG/ML AMP ONE; -FEXO1TAB58 PO; -LACTATED RINGER'S 1000ML 1,000 ML IV SCH; -LACTATED RINGER'S 1000ML 500 ML IV SCH; -LACTATED RINGER'S 1000ML IV SCH; +LR 15ML/HR IV SCH; +LR 60ML/HR IV SCH; -METOCLOPRAMIDE HCL 10 MG TAB PO SCH; +ROPIVACAINE 0.5% HCL/PF 150 MG, BUPIVACAINE 0.5% MPF 30 ML, EPINEPHrine 30MG/30ML (OR U... INFIL SCH; -SCOPOLAMINE 1.5 MG TDSY TD SCH; -TAMS0.4C38 PO; +TRANEXAMIC ACID 1,000 MG **IV Intra-op IV SCH; +TRANEXAMIC ACID 1,000 MG **IV Pre-op IV SCH; -TRANEXAMIC ACID INJ 1,000 MG x 1 Bag Intra-Op IV SCH; +dexAMETHasone 4 MG TAB PO SCH
[2019-11-30] MEDS ORDERED: fentaNYL citrate 100 MCG/2 ML VIAL ONE (09:28)
[2019-11-30] MEDS ORDERED: MIDAZOLAM HCL 1 MG/ML 2ML VIAL ONE (09:28)
--- NOTE | 2019-11-30 09:44 | History & Physical Bridge Note ---
Date of Service November 30, 2019 History & Physical Bridge Note I have examined the patient, reviewed the History & Physical and in the interval since the performance of the History & Physical I have noted the following changes of clinical significance: no changes noted
[2019-11-30] MEDS ORDERED: ORTHO JOINT ANESTHETIC ONE (10:01)
[2019-11-30] MEDS ORDERED: ePHEDrine sulfate 50 MG/ML AMP IV PRN (10:42)
[2019-11-30] MEDS ORDERED: ATROPINE SULFATE 0.1 MG/ML 10ML SYR IV PRN (10:42)
[2019-11-30] MEDS ORDERED: ONDANSETRON INJ 2 MG/ML 2 ML VIAL IV PRN ×2 (10:42→14:59)
[2019-11-30] MEDS ORDERED: fentaNYL citrate 100 MCG/2 ML VIAL IV PRN (10:42)
[2019-11-30] MEDS ORDERED: LIDOCAINE HCL 2% 2 ML VIAL/AMP(20MG/ML) INFIL ONE (12:12)
[2019-11-30] MEDS ORDERED: NEOSTIGMINE METHYLSULFATE 5 MG/5 ML SYR ONE (12:12)
[2019-11-30] MEDS ORDERED: GLYCOPYRROLATE 0.2 MG/ML VIAL ONE (12:12)
[2019-11-30] MEDS ORDERED: DEXAMETHASONE SOD INJ 4 MG/ML VIAL ONE (12:12)
[2019-11-30] MEDS ORDERED: PROPOFOL IV EMULSION 10 MG/ML 20 ML VIAL IV ONE (12:12)
[2019-11-30] MEDS ORDERED: ONDANSETRON INJ 2 MG/ML 2 ML VIAL ONE (12:12)
[2019-11-30] MEDS ORDERED: ROCURONIUM BROMIDE 10 MG/ML 5 ML VIAL ONE (12:12)
[2019-11-30] MEDS ORDERED: PHENYLEPHRINE HCL 10 MG/ML VIAL ONE (12:17)
[2019-11-30] MEDS ORDERED: ePHEDrine sulfate 50 MG/ML SYR ONE (12:23)
--- NOTE | 2019-11-30 13:05 | Operative Report ---
PG Post Operative Report Pre & Post Diagnosis Operation Date: 11/30/19 11:50 Pre-Op Diagnosis: Rotator cuff arthropathy of the right shoulder Post-Op Diagnosis: Rotator cuff arthropathy of the right shoulder I identified the patient and participated in the time-out.: Yes Procedure Operation Date: 11/30/19 11:50 Actual Procedures p Right Reverse Total Shoulder Arthroplasty(Right) - Román Mehta DO Surgeon Román Mehta DO Maintenance And Engineering Manager Román Abdi PAC Estimated Blood Loss 250 Findings Consistent with Post-Op Diagnosis Specimens Right humeral head Complications none Disposition Disposition: Recovery Room Indications Ed is a pleasant 69-year-old male who presented my office with chronic increasing right shoulder pain. He has a history of a rotator cuff repair in the past. Unfortunately is gone on to develop bad arthritis and a failed rotator cuff. After failing conservative treatment, he has elected to proceed with a right reverse shoulder arthroplasty. Description of Procedure Implants used: I used a [employer]omet Comprehensive reverse total shoulder arthroplasty system with a size 14 press fit mini humeral stem, a standard humeral tray and a standard humeral bearing, a 28 mm standard baseplate with a 6.5 mm central screw and superior and inferior locking screws, and a size 40 eccentric glenosphere. The patient arrived at [facility] for the above procedure. There were seen in the preoperative holding area and the operative extremity was identified and signed. They were given a preoperative antibiotic and an interscalene nerve block. They were taken back to the operating room, laid on table in supine position, and put under general anesthesia. They were then put into the beachchair position. The shoulder was then prepped and draped in sterile fashion. A timeout was done and the patient and the operative extremity was properly identified. A deltopectoral approach was used. Dissection was taken down through the fascia and the deltoid was retracted laterally and the conjoined tendon was retracted medially. The anterior shoulder was exposed. The long head of the biceps tendon was tenodesed to the upper border of the pectoralis major. The subscapularis was then released off the lesser tuberosity with a centimeter of cuff tissue remaining. The inferior capsule was released and the humeral head was dislocated. A canal finding reamer was sent down the center of the humeral canal. Sequential reaming up to a size 14 reamer was done. Off that reamer, a proximal humeral resection guide was placed. The proximal humerus was resected at 135 of inclination and 25 of retroversion. Osteophytes were then removed and the glenoid was exposed. Time was spent doing a complete capsular and labral release. The glenoid guide was then placed in the inferior aspect of the glenoid. A 3.2 mm Steinmann pin was then placed into the glenoid vault at 10 of inclination. The glenoid baseplate was then reamed. The final size 28 mm standard baseplate was then impacted in the place. A 6.5 mm central screw was then placed followed by superior and inferior locking screws. A 40 mm eccentric glenoid sphere was then impacted into place. Surrounding soft tissues were then injected with 100 cc an orthopedic pain control cocktail. The proximal humerus was then exposed. Sequential broaching of the humerus up to a size 14 broach was done. Off that broach a standard humeral tray was trialed. The shoulder was then reduced, brought through a full range of motion and felt to be stable. The shoulder was then dislocated and the broach was removed. The final size 14 mini press-fit humeral stem was then impacted into place. A standard humeral bearing was then snapped onto a standard humeral tray and the ring-lock mechanism was engaged. The humeral tray was then impacted onto the humeral stem. The shoulder was once again reduced, brought through a full range of motion and felt to be stable. The subscapularis was then tenodesed back to the lesser tuberosity with transosseous FiberWire sutures and side to side sutures with the arm in 45 of external rotation. A dilute betadyne lavage was then done for 3 minutes. The joint was then irrigated with normal saline solution. Hemostasis was obtained. The skin was then closed with 2-0 Vicryl, 3-0V lock suture, and chelita. A soft dressing and a regular arm sling was placed. The patient was then extubated and transferred to a hospital bed. They were taken to the postanesthesia care unit in stable condition. They tolerated the procedure well. I attest to the content of the Intraoperative Record and any orders documented therein. Any exceptions are noted below.
--- NOTE | 2019-11-30 14:20 | XRay Report ---
XR shoulder RT min 2V routine HISTORY: 69 years-old Male Post shoulder surgery right shoulder total joint arthroplasty COMPARISON: Chest radiographs 10/23/2019 TECHNIQUE: 2 views of the right shoulder FINDINGS: Reverse right shoulder total joint arthroplasty. There is satisfactory alignment without acute fractu re or retained foreign body. Expected postsurgical soft tissue swelling and deep tissue air is noted with overlying skin chelita. Fusion hardware the cervical spine. Lungs are hypoinflated. Cardiomegaly with pulmonary vascular congestion and bronchovascular crowding. IMPRESSION: Expected postoperative findings associated with the reverse right shoulder total joint ar throplasty. ACT 112: Negative or not required by law. The above report was generated using voice recognition software. It may contain grammatical, syntax o r spelling errors. Electronically signed by: Geovanni Owens M.D. 11/30/2019 2:19 PM
--- NOTE | 2019-11-30 14:52 | Anesthesiology Progress Note ---
Date of Service November 30, 2019 Anesthesia Post Procedure Vital Signs Vital Signs: Temp Pulse Pulse Resp BP Pulse Ox 11/30/19 14:15 82 17 157/86 H 94 11/30/19 14:05 81 17 148/89 H 95 11/30/19 13:55 97.7 F 79 16 147/82 H 95 11/30/19 13:45 76 15 145/76 H 96 11/30/19 13:35 74 12 142/76 H 97 11/30/19 13:29 97.9 F 78 12 143/78 H 96 11/30/19 09:57 97.7 F 65 20 153/98 H 95 Pain Intensity Right Shoulder: Pain Intensity: 4 Transfer of Care Handoff Completed per policy Notes Mental Status: alert / awake / arousable and participated in evaluation Patient Amnestic to Procedure: Yes Nausea / Vomiting: adequately controlled Pain: adequately controlled Airway Patency, RR, SpO2: stable & adequate BP & HR: stable & adequate Hydration State: stable & adequate Anesthetic Complications: no major complications apparent and Pt Satisfied with anesthetic care
[2019-11-30] MEDS ORDERED: bisacodyL 10 MG SUPP PR PRN (14:59)
[2019-11-30] MEDS ORDERED: OXYCODONE HCL IR 5 MG TAB (IMMEDIATE RELEASE) PO PRN (14:59)
[2019-11-30] MEDS ORDERED: NALOXONE HCL 0.4 MG/1 ML VIAL/CARP IV PRN (14:59)
[2019-11-30] MEDS ORDERED: METOCLOPRAMIDE HCL INJ 5 MG/ML 2 ML VIAL IV PRN (14:59)
[2019-11-30] MEDS ORDERED: SODIUM CHLORIDE 0.9% 1000ML 1,000 ML IV SCH (14:59)
[2019-11-30] MEDS ORDERED: MAGNESIUM HYDROXIDE SUSP 30 ML UDC PO PRN (14:59)
[2019-11-30] MEDS ORDERED: HYDROmorphone INJ 0.5 MG/0.5 ML SYR IV PRN (14:59)
[2019-11-30] MEDS: KETOROLAC TROMETHAMINE 15 MG/ML VIAL IV SCH ×2 (15:53→21:39)
[2019-11-30] MEDS: ACETAMINOPHEN 500 MG TAB PO SCH (18:09)
[2019-11-30] MEDS: CEFAZOLIN 2000MG 2,000 MG/15 ML SYR IV SCH (18:09)
[2019-11-30] MEDS: DOCUSATE SODIUM 100 MG CAP PO SCH (20:35)
[2019-11-30] MEDS ORDERED: AMLODIPINE BESYLATE 5 MG TAB PO SCH (21:00)
[2019-11-30] MEDS ORDERED: TAMSULOSIN HCL 0.4 MG CAP PO SCH (21:00)
[2019-11-30] MEDS ORDERED: SENNA 8.6 MG TAB PO SCH (21:00)
[2019-12-01] MEDS: CEFAZOLIN 2000MG 2,000 MG/15 ML SYR IV SCH (03:17)
[2019-12-01] MEDS: KETOROLAC TROMETHAMINE 15 MG/ML VIAL IV SCH ×2 (03:17→09:36)
[2019-12-01] MEDS: ACETAMINOPHEN 500 MG TAB PO SCH (05:19)
[2019-12-01 06:19] LABS: Basophils # (auto) 0.01 K/uL (0-0.2); Hematocrit (blood only) 42.3 % (42-52); Hemoglobin 14.4 g/dL (14.0-18.0); Immature Granulocytes # (auto) 0.04 K/uL (0.00-0.02); Immature Granulocytes % (auto) 0.2 %; Lymphocytes # (auto) 0.87 K/uL (1.2-3.4); Lymphocytes % (auto) 4.3 %; Mean Corpuscular Hemoglobin 29.5 pg (25-34); Mean Corpuscular Volume 86.7 fL (80-100); Monocytes % (auto) 8.4 %; Neutrophils # (auto) 17.55 K/uL (1.4-6.5); Neutrophils % (auto) 87.1 %; Platelet Count 271 K/uL (130-400); RDW Coefficient of Variation 14.2 % (11.5-14.5); RDW Standard Deviation 44.7 fL (36.4-46.3); Red Blood Count 4.88 M/uL (4.7-6.1); White Blood Count 20.17 K/uL (4.8-10.8)
[2019-12-01 06:56] LABS: BUN Creatinine Ratio 14.8 (10-20); Calcium 8.6 mg/dl (8.5-10.1); Creatinine Clr Calc Pharmacy 60.3 ml/min; Est GFR (African American) 62.9; Est GFR (Non-African American) 54.3
[2019-12-01] MEDS ORDERED: dexAMETHasone 4 MG TAB PO SCH (08:00)
[2019-12-01] MEDS ORDERED: HYDROXYCHLOROQUINE SULFATE 200 MG TAB PO SCH (09:00)
[2019-12-01] MEDS ORDERED: FEXOFENADINE 60MG/PSEUDOEPHEDRINE 120MG TAB PO SCH (09:00)
[2019-12-01] MEDS ORDERED: PIROXICAM 10 MG CAP PO SCH (09:00)
[2019-12-01] MEDS ORDERED: ASPIRIN 81 MG ECTAB PO SCH (09:00)
[2019-12-01] MEDS ORDERED: MULTIVITAMIN TAB PO SCH (09:00)
[2019-12-01] MEDS: DOCUSATE SODIUM 100 MG CAP PO SCH (09:33)
--- NOTE | 2019-12-01 09:36 | Orthopedic Progress Note ---
Date of Service December 01, 2019 Assessment & Plan (1) History of reverse total replacement of right shoulder joint: Overall is doing very well. Is not having much pain in the right shoulder. He is participating well with physical therapy doing ambulation and range of motion exercises. He can be discharged home later this morning. I will see him in the office in 2 weeks. Present on Admission?: Yes Subjective Ed was seen and examined at bedside this morning. Overall is doing very well. Is not having any pain in the right shoulder. He was being seen by physical therapy when I came in the room. He has no complaints. Physical Exam Musculoskeletal: On physical examination of the right shoulder, the dressing is clean and dry. He is wearing his sling as instructed. His radial, median, and ulnar nerves are checked and intact at his wrist. His axillary nerve was not checked yet. Results & Data Vital Signs (Past 12 Hours) Vital Signs Temp Pulse Resp BP Pulse Ox 12/01/19 08:10 36.5 C 72 18 157/83 H 95 12/01/19 03:30 36.8 C 69 16 131/70 92 11/30/19 23:33 37.0 C 84 16 146/77 H 92 Laboratory Results H & H 10/23/19 12/01/19 Range/Units 09:35 06:02 Hgb 15.9 14.4 (14.0-18.0) g/dL Hct 47.9 42.3 (42-52) % Coagulation 10/23/19 Range/Units 09:35 INR 1.1 (0.9-1.1) Diagnostic Findings Postoperative x-rays of the right shoulder show the prosthesis to be in anatomic alignment without any evidence of fracture, dislocation, or loosening. PG Care Time/CCT Total # of Minutes Spent Total Time Spent with Patient: Total time spent is greater than 50% in coordination of care (as documented) at patient's floor/unit and/or counseling patient: Coding Level of Care Code None Diagnoses History of reverse total replacement of right shoulder joint Z98.890
--- NOTE | 2019-12-01 09:44 | Discharge Summary ---
Date of Service December 01, 2019 Admission HPI Per Admitting Provider Ric is a pleasant 69-year-old male who initially injured his right shoulder in 2004. He had it repaired at an outside institution, but unfortunately he had an infection of his shoulder. He had a cleanout and a revision cuff repair in [facility] soon thereafter. Unfortunately his shoulder is never done well. He is gone on developed significant arthritis and weakness of his shoulder. It hurts him all the time. X-rays and clinical examination were diagnostic for cuff arthropathy of the right shoulder. After failing conservative treatment, he has elected to proceed with a right reverse shoulder arthroplasty. Principal Diagnosis Right reverse shoulder arthroplasty Discharge Data Allergies Allergy/AdvReac Type Severity Reaction Status Date / Time Gpwgpri-Hll-Nxx Reductase Allergy Mild LEG Verified 11/30/19 09:46 Inhibitor SWELLING Procedures Performed Operation Date: 11/30/19 11:50 Actual Procedures p Right Reverse Total Shoulder Arthroplasty(Right) - Román Mehta DO Ordered Studies 11/30/19 05:00 US - OR guided needle placemen Routine Hospital Course (1) History of reverse total replacement of right shoulder joint: On November 30, 2019 Ric arrived at [facility] and underwent a right reverse shoulder arthroplasty without complication. He had a general anesthetic and a right interscalene nerve block. Postoperatively he was placed in a sling and discharged to general orthopedic floors. His hospital course was uneventful. On postop day #1 his H&H was stable and his pain was well controlled. He was able to participate well with physical therapy doing ambulation and range of motion exercises. He was then discharged home. He will follow-up with orthopedics in 2 weeks. Total Time Total Time Spent Total Time Spent (In Minutes): 20 Discharge Plan Discharge Items Reason For Visit: RIGHT SHOULDER DEGENERATIVE JOINT DISEASE Discharge Diagnosis: Right reverse shoulder replacement Activity: As commented below Non-emergency contact: Surgeon Call non-emergency contact if: your wound has increased redness and your wound has increased drainage Follow-up/Referrals: PT,DECLINED [Primary Care Provider] - Diet: Regular Addtl Attending Provider Instructions: Activity and Therapy Recommendations: * If you are using [facility] then therapy will be provided at your home until they feel you have accomplished all of your goals. * If you are using [facility] then Physical Therapy will be provided until they feel you are ready to start Outpatient Physical Therapy. * If you are not using home therapy then Outpatient Physical Therapy should start about 3-5 days from your day of surgery. Therapy will last about 8-12 weeks * Wear your sling for 3 weeks, unless otherwise instructed. You may remove your sling to shower and to dress, but otherwise, you should be in your sling at all times, including while sleeping * The shoulder replacement is very stable and you can use your hand while in the sling * You were shown a series of exercises in the hospital. Do these exercises daily including the exercises you were shown in physical therapy. Medications: * Narcotic You will likely be sent home from the hospital with a prescription for the narcotic pain medication that worked best throughout your stay. * Other medications may be prescribed for specific circumstances. If you have any questions, please call the office at . * Resume previous home medications unless otherwise instructed Dressing Care: Leave the plastic dressing in place for 5 days. After 5 days you may remove the plastic dressing. If the incision is not draining then you may leave the chelita open to air. If there is a little bit of drainage or if the chelita are getting stuck on your clothing then cover the incision with a dry dressing. The chelita will be removed at your 2 week follow-up appointment. Showering: You may shower with the plastic dressing in place. Let the shower spray hit the other shoulder. You can pat the plastic dry. If the dressing becomes wet underneath the plastic then simply remove the dressing. Keep the incision dry until you are 5 days out from the day of surgery. At that time you can shower with the chelita exposed. Let the soapy shower water run over the chelita and pat them dry. Do not scrub or soak the incision. Things To Watch For: * Drainage from the incision site that occurs more than one week after your surgery. * Increased redness at the incision site. * Fever above 102 degrees Fahrenheit. * Unusual chest pain or shortness of breath. * Call [facility] at with any of the above problems Follow-Up Visit: Follow-up with Dr. Mehta 2-3 weeks after your day of surgery. An appointment was probably scheduled when you signed-up for surgery in the office. If you have any questions call Office Instructions: More detailed instructions as well as Frequently Asked Questions were provided in a folder by our office when you signed-up for surgery. Please review these instructions when you get home. If you have any further questions or concerns, please feel free to call the office at [phone] Pending Studies at Discharge: No Stand-Alone Forms: [facility], Smoking Cessation Medications and DC Order Prescriptions: New oxycodone 5 mg Tablet 5 mg PO Q4H PRN (Reason: pain) Qty: 30 RF: 0 oxycodone 5 mg tablet 5 mg PO Q6H PRN (Reason: pain) Qty: 30 RF: 0 Continued amlodipine 5 mg Tablet 5 mg PO HS RF: 0 aspirin [Aspir-81] 81 mg Tablet,Delayed Release (Dr/Ec) 81 mg PO QAM RF: 0 acetaminophen [Tylenol Extra Strength] 500 mg Tablet 1,000 mg PO Q6H PRN (Reason: Pain) RF: 0 tamsulosin [Flomax] 0.4 mg Capsule 0.8 mg PO HS RF: 0 candesartan [Atacand] 32 mg Tablet 32 mg PO QAM RF: 0 hydroxychloroquine [Plaquenil] 200 mg Tablet 200 mg PO QAM RF: 0 piroxicam 20 mg Capsule 20 mg PO QAM RF: 0 Emily-D 24 Hour 180-240 mg Tablet Extended Release 24 Hr 1 tab PO QAM RF: 0 Restasis 0.05 % Dropperette 1 drp OPHTHALMIC (EYE) Q12H PRN (Reason: Dry Eyes) RF: 0 Admission Data Admit Date/Time: 11/30/19 13:32 Attending Provider: Román Mehta Admit Provider: Román Mehta Primary Care Provider: VAISHALI OLIVEIRA Coding Level of Care Code D/C Day Management <30 mins Diagnoses History of reverse total replacement of right shoulder joint Z98.890
== END 2019-12-01 11:03 | disposition home health service (06) | DRG 483 ==
LOC: ASU 09:09 → 3E 13:32